=== PATIENT | female | born 1965 | race Caucasian/White ===

== ENCOUNTER 2020-02-15 13:28 | Outpatient (RCR) | payer MEDICARE, MEDICAID, SELFPAY ==
--- NOTE | 2020-02-15 18:48 | PT.OIE ---
Current Diagnoses Low back pain (02/15/20) Difficulty in walking, not elsewhere classified (02/15/20) Abnormal posture (02/15/20) Weakness (02/15/20) Visit Care Team Role Provider Type Kim Loo MD Attending Provider Non-Staff Family Provider Primary Care Provider Referring Provider Specialty: Medical Address: [address] [place] [address], [id number] Email: Physical Therapy Initial Evaluation PT-OP-A Visit Information Start: 02/15/20 12:58 Freq: Status: Active Protocol: Document 02/15/20 12:59 [facility] (Rec: 02/15/20 14:31 [facility] [id number]) Out-Patient Physical Therapy Visit Information Visit Information Visit Type Initial Evaluation Visit Start Time 13:50 Visit Stop Time 14:30 Total Visit Minutes 40 Visit Number 1 Number of SAND CONDITIONER MACHINE Visits 0 PT-OP-B Current Condition Start: 02/15/20 12:58 Freq: Status: Active Protocol: Document 02/15/20 12:59 [facility] (Rec: 02/15/20 14:31 [facility] [id number]) Current Condition History of Current Condition Onset Date 4 years ago, surgery 2 years ago, worse over past year Current Complaints LBP and R buttock pain History of Current Condition Pt had TLIF [address] Saavedra. The first year things went well but the 2nd year it started coming back and getting worse. Pt is concerned re: injuring it further. Pt reports prior to surgery her discs were all screwed up. Pt reports back pain for 4 years now. Pt likes to walk and walks 3x/day with dog. Pt reports walking and standing do not bother her back, but laying hurts. Prior Treatments and Tests had injection 1 year ago but no help, did PT after surgery but only did a few visits d/t feeling okay so quit early. 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., JURADO, depression, dizziness, bipolor PT-OP-C Subjective Start: 02/15/20 12:58 Freq: Status: Active Protocol: Document 02/15/20 12:59 [facility] (Rec: 02/15/20 14:31 [facility] [id number]) Patient Questionnaires Oswestry Low Back Index Oswestry Score 18/50 Oswestry Impairment 20 to 39% Impaired (Score 20- 39) OP-PT Pain Assessment Location LBP Pain Location Details around lumbosacral junction and into L buttock Intensity 7 Scale Used Numeric (1 - 10) Description Aching,Dull Description- Other stiffness Frequency Daily Pain Duration if start walking, about 30 min for relief in Am Pain Aggravating Factors Sitting,Lifting Other Pain Aggravating Factors laying down, getting up from laying down Other Pain Alleviating Factors walking PT-OP-F Manual Assessment Start: 02/15/20 12:58 Freq: Status: Active Protocol: Document 02/15/20 12:59 [facility] (Rec: 02/15/20 14:31 [facility] [id number]) Manual Assessments Joint Mobility Assessment Joint Mobility Assessment R post rotated and elevated; greater trochanter equal PT-OP-G Mobility & Gait Start: 02/15/20 12:58 Freq: Status: Active Protocol: Document 02/15/20 12:59 [facility] (Rec: 02/15/20 14:31 [facility] [id number]) OP Gait Assessment Comments Gait Comments Lat lean bilaterally; leg walking, dec push off PT-OP-J Posture/Palpation/Skin Start: 02/15/20 12:58 Freq: Status: Active Protocol: Document 02/15/20 12:59 [facility] (Rec: 02/15/20 14:31 [facility] [id number]) Posture Evaluation [facility] Postural Classification System Nicolas Postural Classifications Posterior/Posterior Elbow Flexion Test 1 Lumbar Protective Mechanism Left AP 0 Lumbar Protective Mechanism Right AP 0 Lumbar Protective Mechanism Left PA 0 Lumbar Protective Mechanism Right PA 0 Comments Posture Comments SLS: L unable: R 1 sec PT-OP-K Range of Motion Start: 02/15/20 12:58 Freq: Status: Active Protocol: Document 02/15/20 12:59 [facility] (Rec: 02/15/20 14:31 [facility] [id number]) Lumbar Spine Range of Motion Lumbar Spine Active Degrees Flexion 32 Extension 21 Rotation Left 31 Rotation Right 45 Lateral Flexion Left 24 Lateral Flexion Right 14 ROM Limitations Soft Tissue Tightness,Pain PT-OP-L Special Tests Start: 02/15/20 12:58 Freq: Status: Active Protocol: Document 02/15/20 12:59 [facility] (Rec: 02/15/20 14:31 [facility] [id number]) Special Tests Lumbar Spine Special Tests Straight Leg Raise Test Results neg B HS WNL Slump Test Results neg B PT-OP-M Strength Start: 02/15/20 12:58 Freq: Status: Active Protocol: Document 02/15/20 12:59 [facility] (Rec: 02/15/20 14:31 [facility] [id number]) Hip Strength Hip Manual Muscle Testing Right Flexion (L2) 3 Fair Extension (S1) 3 Fair Abduction 3+ Fair+ External Rotation 3+ Fair+ Internal Rotation 3+ Fair+ Left Flexion (L2) 3 Fair Extension (S1) 3 Fair Abduction 3+ Fair+ External Rotation 3+ Fair+ Internal Rotation 3+ Fair+ Knee Strength Knee Manual Muscle Testing Right Flexion (S2) 4- Good- Extension (L3) 4- Good- Left Flexion (S2) 3+ Fair+ Extension (L3) 3+ Fair+ Ankle/Foot Strength Ankle and Foot Manual Muscle Testing Right Dorsiflexion (L4) 5 Normal Plantarflexion (S1) 5 Normal Left Dorsiflexion (L4) 5 Normal Plantarflexion (S1) 5 Normal Comments B tested in seated PT-OP-Q Treatments Start: 02/15/20 12:58 Freq: Status: Active Protocol: Document 02/15/20 12:59 [facility] (Rec: 02/15/20 14:31 [facility] [id number]) Therapeutic Exercises Supine Exercises LTR Side bilateral Reps/Minutes 5 pelvic tilt Reps/Minutes 5 Standing Exercises mini squat Standing Exercise Name at sink Reps/Minutes 10 hip abd Standing Exercise Name at counter Side bilateral Reps/Minutes 3 Comments stopped d/t pain PT-OP-T Assessment and Plan Start: 02/15/20 12:58 Freq: Status: Active Protocol: Document 02/15/20 12:59 [facility] (Rec: 02/15/20 14:31 [facility] [id number]) Physical Therapy Assessment Rehab Potential Rehabilitation Potential Good Evaluation Complexity Number of Personal Factors/Comorbidities 3 or More Number of Body Systems Impaired 4 or More Clinical Presentation at Evaluation Evolving Impairments Impairments Activity Tolerance,Balance, Functional Activities, Functional Mobility,Gait,Pain, Posture,ROM,Soft Tissue Mobility,Strength Goals posture Short Term Goal (STG) Pt will improve posture as evident by improvement of VCT to 3/5 STG Duration 03/19/20 Mine Engineering Supervisor Goal (LTG) Pt will show improved posture and core engagment by improvement of LPM and EFT to at least 3/5 in all planes LTG Duration 04/16/20 balance Penitentiary Goal (LTG) Pt will show improved balance by being able to do SLS B for 10 sec LTG Duration 04/16/20 weakness Short Term Goal (STG) Pt will be indep with HEP. STG Duration 03/17/20 Penitentiary Goal (LTG) Pt will improve strength in LE to at least 4+/5 to improve ability to perform lifting mechanics and ADLS without inc pain. LTG Duration 04/16/20 activtiies Short Term Goal (STG) Pt will report being able to lay down and sit for at least 30 min without inc pain over 10 STG Duration 03/19/20 Mine Engineering Supervisor Goal (LTG) Pt will be able to sit for 1 hour without increased pain. LTG Duration 04/16/20 Assessment Summary Assessment Pt presents with LBP in lumbosacral juntion and SI joints with pain into R buttocks that started about 4 years ago, but improved after surgery 2 years ago. Pain had improved for about 1 year after surgery but has gotten worse over the past year. She is limited in her ability to sit, lift, bend and lay down for any length of time and has noted balance and strength issues that concern her. She had dec ROM, dec strength ( core and LE), dec balance, dec functional ability and inc pain on evaulation today and would benefit from PT to address these deficits. Physical Therapy Plan Frequency and Duration Frequency of Treatment 2x/Week Duration of Treatment 2 months Plan of Care Start Date 02/15/20 Plan of Care End Date 04/16/20 Therapeutic Interventions Therapeutic Interventions Aquatic Therapy,Balance Training,Gait Training,Home Exercise Program,Joint Mobilizations,Manual Therapy, Neuromuscular Re-education, Patient/Caregiver Education, Self-Care/Home Management,Soft Tissue Mobilization,Taping, Therapeutic Activities, Therapeutic Exercises Modalities Cold Pack/Ice Massage,Electric Stimulation,Hot Packs, Traction- Mechanical, Ultrasound Next Visit Focus/Plan Next Note Type Treatment Note Next Visit Plan Work on progression of supine core stability, PNF, Cat/camel & noe pose, wall posture, attempt mini lunges, balance, self tennis ball release, piriformis stretch, manual release of piriformis
--- NOTE | 2020-02-15 18:48 | PT.OPPOC ---
Physical, Occupational & Speech Therapy At [facility] Current Diagnoses Low back pain (02/15/20) Difficulty in walking, not elsewhere classified (02/15/20) Abnormal posture (02/15/20) Weakness (02/15/20) Visit Care Team Role Provider Type Kim Loo MD Attending Provider Non-Staff Family Provider Primary Care Provider Referring Provider Specialty: Medical Address: [address] [place] [address], [id number] Email: Plan Of Care PT-OP-T Assessment and Plan Start: 02/15/20 12:58 Freq: Status: Active Protocol: Document 02/15/20 12:59 [facility] (Rec: 02/15/20 14:31 [facility] [id number]) Physical Therapy Assessment Rehab Potential Rehabilitation Potential Good Evaluation Complexity Number of Personal Factors/Comorbidities 3 or More Number of Body Systems Impaired 4 or More Clinical Presentation at Evaluation Evolving Impairments Impairments Activity Tolerance,Balance, Functional Activities, Functional Mobility,Gait,Pain, Posture,ROM,Soft Tissue Mobility,Strength Goals posture Short Term Goal (STG) Pt will improve posture as evident by improvement of VCT to 3/5 STG Duration 03/19/20 Production Control Pegboard Clerk Goal (LTG) Pt will show improved posture and core engagment by improvement of LPM and EFT to at least 3/5 in all planes LTG Duration 04/16/20 balance Prison Goal (LTG) Pt will show improved balance by being able to do SLS B for 10 sec LTG Duration 04/16/20 weakness Short Term Goal (STG) Pt will be indep with HEP. STG Duration 03/17/20 Production Control Pegboard Clerk Goal (LTG) Pt will improve strength in LE to at least 4+/5 to improve ability to perform lifting mechanics and ADLS without inc pain. LTG Duration 04/16/20 activtiies Short Term Goal (STG) Pt will report being able to lay down and sit for at least 30 min without inc pain over 3 /10 STG Duration 03/19/20 Prison Goal (LTG) Pt will be able to sit for 1 hour without increased pain. LTG Duration 04/16/20 Assessment Summary Assessment Pt presents with LBP in lumbosacral juntion and SI joints with pain into R buttocks that started about 4 years ago, but improved after surgery 2 years ago. Pain had improved for about 1 year after surgery but has gotten worse over the past year. She is limited in her ability to sit, lift, bend and lay down for any length of time and has noted balance and strength issues that concern her. She had dec ROM, dec strength ( core and LE), dec balance, dec functional ability and inc pain on evaulation today and would benefit from PT to address these deficits. Physical Therapy Plan Frequency and Duration Frequency of Treatment 2x/Week Duration of Treatment 2 months Plan of Care Start Date 02/15/20 Plan of Care End Date 04/16/20 Therapeutic Interventions Therapeutic Interventions Aquatic Therapy,Balance Training,Gait Training,Home Exercise Program,Joint Mobilizations,Manual Therapy, Neuromuscular Re-education, Patient/Caregiver Education, Self-Care/Home Management,Soft Tissue Mobilization,Taping, Therapeutic Activities, Therapeutic Exercises Modalities Cold Pack/Ice Massage,Electric Stimulation,Hot Packs, Traction- Mechanical, Ultrasound Next Visit Focus/Plan Next Note Type Treatment Note Next Visit Plan Work on progression of supine core stability, PNF, Cat/camel & noe pose, wall posture, attempt mini lunges, balance, self tennis ball release, piriformis stretch, manual release of piriformis Plan of Care Dates Plan of Care Start Date 02/15/20 Plan of Care End Date 04/16/20 Electronically Signed by: Ailyn Mcbride, PT 02/15/20 1465 Please Sign and Return: I have reviewed this Plan of Care and certify that the skilled therapy services above are required to meet the patient?s needs. Physician Signature Date Printed Name and Credentials Clinical Instructor Signature Printed Name and Credentials
--- NOTE | 2020-02-20 10:14 | PT-OP ANOTE ---
Pt called re: no show and she noted she thought today was Thursday so she missed her appt. She plans to be here Thursday at 1515 and was reminded of that appointment.
--- NOTE | 2020-02-22 15:46 | PT.OPDS ---
Current Diagnoses Low back pain (02/15/20) Difficulty in walking, not elsewhere classified (02/15/20) Abnormal posture (02/15/20) Weakness (02/15/20) Visit Care Team Role Provider Type Kim Loo MD Attending Provider Non-Staff Family Provider Primary Care Provider Referring Provider Specialty: Medical Address: [address] [place] [address], [phone] Email: Visit Number Visit Number 1 Discharge Summary PT-OP-B Current Condition Start: 02/15/20 12:58 Freq: Status: Active Protocol: Document 02/15/20 12:59 [facility] (Rec: 02/15/20 14:31 [facility] [id number]) Current Condition History of Current Condition Onset Date 4 years ago, surgery 2 years ago, worse over past year Current Complaints LBP and R buttock pain History of Current Condition Pt had TLIF [address] Saavedra. The first year things went well but the 2nd year it started coming back and getting worse. Pt is concerned re: injuring it further. Pt reports prior to surgery her discs were all screwed up. Pt reports back pain for 4 years now. Pt likes to walk and walks 3x/day with dog. Pt reports walking and standing do not bother her back, but laying hurts. Prior Treatments and Tests had injection 1 year ago but no help, did PT after surgery but only did a few visits d/t feeling okay so quit early. 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., JURADO, depression, dizziness, bipolor PT-OP-C Subjective Start: 02/15/20 12:58 Freq: Status: Active Protocol: Document 02/15/20 12:59 [facility] (Rec: 02/15/20 14:31 [facility] [id number]) Patient Questionnaires Oswestry Low Back Index Oswestry Score 18/50 Oswestry Impairment 20 to 39% Impaired (Score 20- 39) OP-PT Pain Assessment Location LBP Pain Location Details around lumbosacral junction and into L buttock Intensity 7 Scale Used Numeric (1 - 10) Description Aching,Dull Description- Other stiffness Frequency Daily Pain Duration if start walking, about 30 min for relief in Am Pain Aggravating Factors Sitting,Lifting Other Pain Aggravating Factors laying down, getting up from laying down Other Pain Alleviating Factors walking PT-OP-F Manual Assessment Start: 02/15/20 12:58 Freq: Status: Active Protocol: Document 02/15/20 12:59 [facility] (Rec: 02/15/20 14:31 [facility] [id number]) Manual Assessments Joint Mobility Assessment Joint Mobility Assessment R post rotated and elevated; greater trochanter equal PT-OP-G Mobility & Gait Start: 02/15/20 12:58 Freq: Status: Active Protocol: Document 02/15/20 12:59 [facility] (Rec: 02/15/20 14:31 [facility] [id number]) OP Gait Assessment Comments Gait Comments Lat lean bilaterally; leg walking, dec push off PT-OP-J Posture/Palpation/Skin Start: 02/15/20 12:58 Freq: Status: Active Protocol: Document 02/15/20 12:59 [facility] (Rec: 02/15/20 14:31 [facility] [id number]) Posture Evaluation [facility] Postural Classification System [facility] Postural Classifications Posterior/Posterior Elbow Flexion Test 1 Lumbar Protective Mechanism Left AP 0 Lumbar Protective Mechanism Right AP 0 Lumbar Protective Mechanism Left PA 0 Lumbar Protective Mechanism Right PA 0 Comments Posture Comments SLS: L unable: R 1 sec PT-OP-K Range of Motion Start: 02/15/20 12:58 Freq: Status: Active Protocol: Document 02/15/20 12:59 [facility] (Rec: 02/15/20 14:31 [facility] [id number]) Lumbar Spine Range of Motion Lumbar Spine Active Degrees Flexion 32 Extension 21 Rotation Left 31 Rotation Right 45 Lateral Flexion Left 24 Lateral Flexion Right 14 ROM Limitations Soft Tissue Tightness,Pain PT-OP-L Special Tests Start: 02/15/20 12:58 Freq: Status: Active Protocol: Document 02/15/20 12:59 [facility] (Rec: 02/15/20 14:31 [facility] [id number]) Special Tests Lumbar Spine Special Tests Straight Leg Raise Test Results neg B HS WNL Slump Test Results neg B PT-OP-M Strength Start: 02/15/20 12:58 Freq: Status: Active Protocol: Document 02/15/20 12:59 [facility] (Rec: 02/15/20 14:31 [facility] [id number]) Hip Strength Hip Manual Muscle Testing Right Flexion (L2) 3 Fair Extension (S1) 3 Fair Abduction 3+ Fair+ External Rotation 3+ Fair+ Internal Rotation 3+ Fair+ Left Flexion (L2) 3 Fair Extension (S1) 3 Fair Abduction 3+ Fair+ External Rotation 3+ Fair+ Internal Rotation 3+ Fair+ Knee Strength Knee Manual Muscle Testing Right Flexion (S2) 4- Good- Extension (L3) 4- Good- Left Flexion (S2) 3+ Fair+ Extension (L3) 3+ Fair+ Ankle/Foot Strength Ankle and Foot Manual Muscle Testing Right Dorsiflexion (L4) 5 Normal Plantarflexion (S1) 5 Normal Left Dorsiflexion (L4) 5 Normal Plantarflexion (S1) 5 Normal Comments B tested in seated PT-OP-T Assessment and Plan Start: 02/15/20 12:58 Freq: Status: Active Protocol: Document 02/22/20 15:46 [facility] (Rec: 02/22/20 15:46 [facility] [id number]) Physical Therapy Plan Discharge Physical Therapy Discharge Reasons Patient Request Discharge Comments Pt only attended eval and no showed first follow up then cancelled all follow ups saying she had too much going on in life at this time to do PT. DC at this time.
== END 2020-02-23 11:55 | disposition home or self-care (01) ==
LOC: PHYS 13:28
PROVIDERS: Family Provider Family Medicine; PCP Family Medicine; Referring Provider Family Medicine; Visit Provider Family Medicine
DX: M54.5 Low back pain (principal); R53.1 Weakness; R26.2 Difficulty in walking, not elsewhere classified; R29.3 Abnormal posture
CPT/HCPCS: 97110; 97162